=== PATIENT | female | born 1970 ===

== ENCOUNTER 2022-06-18 06:25 | Day surgery (SDC) | payer OTHER ==
[~2022-06-18] VITALS: Ht 167.6 cm; Wt 66.7 kg
[2022-06-18] MEDS ORDERED: PERCOCET 5-3251 EACH PO (19:49)
== END 2022-06-18 20:25 | disposition home or self-care (01) ==
LOC: CIR.AMB 06:25
PROVIDERS: ATTEND Surgery
DX: N20.2 Calculus of kidney with calculus of ureter (principal); Z20.822 Contact with and (suspected) exposure to COVID-19; Z91.041 Radiographic dye allergy status; Z86.16 Personal history of COVID-19
CPT/HCPCS: 52356; C1758

== ENCOUNTER 2022-09-04 09:20 | Day surgery (SDC) | payer OTHER ==
[~2022-09-04] VITALS: Ht 167.6 cm; Wt 70.3 kg
[~2022-09-04 09:20] MED LIST: PERCOCET 5-3251 EACH PO
[2022-09-04] MEDS ORDERED: PERCOCET 5-3251 EACH PO (19:34)
[2022-09-04] MEDS ORDERED: TAMS0.4C PO (19:34)
[2022-09-04] MEDS ORDERED: PYRIDIUM200 MG PO (19:35)
[2022-09-04] MEDS ORDERED: LEVOFLOXACIN750 MG PO (19:35)
== END 2022-09-04 21:40 | disposition home or self-care (01) ==
LOC: CIR.AMB 09:20
PROVIDERS: ATTEND Surgery
DX: N20.1 Calculus of ureter (principal); N20.0 Calculus of kidney; Z91.041 Radiographic dye allergy status; Z20.822 Contact with and (suspected) exposure to COVID-19

== ENCOUNTER → 2023-05-20 13:00 | Outpatient (CLI) | payer OTHER ==
[~2023-05-20 13:00] MED LIST changes: +LEVOFLOXACIN750 MG PO; +PYRIDIUM200 MG PO; +TAMS0.4C PO
== END | disposition home or self-care (01) ==
LOC: EKG 13:00
DX: N20.0 Calculus of kidney (principal)